=== PATIENT | male | born 1990 | race Caucasian/White ===

== ENCOUNTER 2019-07-09 12:50 | Emergency (ER) | payer OTHER ==
[~2019-07-09] VITALS: Ht 177.8 cm; Wt 97.5 kg
[2019-07-09 12:51] VITALS: BP 146/65
[2019-07-09] MEDS ORDERED: KETOROLAC 60 MG/2 ML VIAL IM ONE (13:15)
--- NOTE | 2019-07-09 13:28 | NUR ---
[facility] IM ADMINISTERED
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
--- NOTE | 2019-07-09 14:34 | NUR ---
DR NINO AT BEDSIDE
[2019-07-09 14:45] VITALS: BP 141/62
--- NOTE | 2019-07-09 14:45 | NUR ---
Patient discharged with v/s stable. Written and verbal after care instructions given and explained. Patient alert, oriented and verbalized understanding of instructions. Ambulatory with steady gait. All questions addressed prior to discharge. ID band removed. Patient advised to follow up with PMD. Rx of MOTRIN AND NORCO given. Patient educated on indication of medication including possible reaction and side effects. Opportunity to ask questions provided and answered. PT INSTRUCTED TO NOT DRIVE AFTER TAKING NORCO REFERRED TO [facility]
== END 2019-07-09 14:45 | disposition home or self-care (01) ==
LOC: MED 12:50
DX: M79.10 Myalgia, unspecified site (principal); Z90.89 Acquired absence of other organs
CPT/HCPCS: 81002; 96372; 99283; J1885

== ENCOUNTER 2022-04-28 18:16 | Emergency (ER) | payer OTHER ==
[~2022-04-28] VITALS: Ht 165.1 cm; Wt 103.0 kg
[2022-04-28 18:24] VITALS: BP 124/89
--- NOTE | 2022-04-28 18:55 | NUR ---
PT AMBULATED TO ER BED 11
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
--- NOTE | 2022-04-28 19:00 | NUR ---
PA WALLS ON BEDSIDE FOR EVAL
--- NOTE | 2022-04-28 19:00 | NUR ---
Pedro sullivan in [facility] [place] - 04/28/22 at 1901 by YUNIOR KAVITA
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
[2022-04-28] MEDS ORDERED: ACETAMINOPHEN 325 MG TAB PO ONE (19:05)
[2022-04-28] MEDS ORDERED: HYDROcodone/APAP 5/325 MG 1 TAB TAB PO ONE (19:05)
[2022-04-28] MEDS ORDERED: BACITRACIN OINT 500 UNITS/GM PKT TP ONE (19:05)
--- NOTE | 2022-04-28 19:22 | NUR ---
Pt report given to MAURICIO TERRAZAS. Transfer of care at this time.
--- NOTE | 2022-04-28 20:14 | NUR ---
PT IN RADIOLOGY
--- NOTE | 2022-04-28 20:21 | NUR ---
PT RETURNED FROM RADIOLOGY
[2022-04-28] MEDS ORDERED: LID5T TP (21:04)
[2022-04-28] MEDS ORDERED: CYCL-711 PO (21:04)
[2022-04-28] MEDS ORDERED: IBUP-2213 PO (21:04)
[2022-04-28 21:28] VITALS: BP 132/88
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
== END 2022-04-28 21:29 | disposition home or self-care (01) ==
LOC: MED 18:16
DX: S22.42XA Multiple fractures of ribs, left side, initial encounter for closed fracture (principal); S06.0X9A Concussion with loss of consciousness of unspecified duration, initial encounter; R93.89 Abnormal findings on diagnostic imaging of other specified body structures; R03.0 Elevated blood-pressure reading, without diagnosis of hypertension; Z79.899 Other long term (current) drug therapy; Y04.2XXA Assault by strike against or bumped into by another person, initial encounter; Y93.89 Activity, other specified; Y92.89 Other specified places as the place of occurrence of the external cause; Y99.8 Other external cause status
CPT/HCPCS: 70450; 70486; 71101; 72072; 72080; 99284